=== PATIENT | female | born 1995 | race African-American/Black ===

== ENCOUNTER 2019-06-21 11:59 | Emergency (ER) | payer MEDICAID ==
[~2019-06-21] VITALS: Ht 180.3 cm; Wt 77.3 kg
[2019-06-21 12:09] VITALS: Ht 180.3 cm; Wt 77.3 kg
[2019-06-21] MEDS ORDERED: FLUTICASONE PRO16 GM NASAL (12:47)
[2019-06-21] MEDS ORDERED: AUGMENTIN 875-11 TAB PO (12:47)
[2019-06-21 13:26] VITALS: BP 137/83
== END 2019-06-21 13:27 | disposition home or self-care (01) ==
LOC: D.ER 11:59
DX: J01.90 Acute sinusitis, unspecified (principal); R05 Cough; R50.9 Fever, unspecified